=== PATIENT | female | born 1990 | race American Indian/Alaskan Native ===

== ENCOUNTER → 2022-03-27 | Outpatient (CLI) | payer BC ==
[~2022-03-27] MED LIST: ADVIL200 MG PO; CLARITIN 1010 MG/TAB PO; MAXALT MLT10 MG/TAB PO; NORCO 325 MG-7.1 TAB PO; ORTHO TRI-CYCLE1 TA2 PO; WOMEN'S DAILY F1 TAB PO; ZYRTEC 10MG10 MG PO
== END ==
LOC: COL.PUL 10:42
DX: J45.20 Mild intermittent asthma, uncomplicated (principal); F17.200 Nicotine dependence, unspecified, uncomplicated

== ENCOUNTER → 2022-07-03 | Outpatient (CLI) | payer BC, OTHER | LOC: COL.PUL 05-17 13:00 | DX: J45.20 Mild intermittent asthma, uncomplicated (principal); F17.200 Nicotine dependence, unspecified, uncomplicated | CPT/HCPCS: J7674 ==

== ENCOUNTER → 2024-07-14 | Outpatient (CLI) | payer OTHER | LOC: COL.RAD 12:15 | DX: R10.30 Lower abdominal pain, unspecified (principal) ==